=== PATIENT | male | born 1965 | race Caucasian/White ===

== ENCOUNTER 2021-06-25 11:49 | Emergency (ER) | payer MEDICAID, OTHER ==
[~2021-06-25] VITALS: Ht 170.2 cm; Wt 107.1 kg
--- NOTE | 2021-06-25 12:10 | PHYS DOC ---
Past History Additional Past Medical Histor: Hernia x 2 Additional Past Surgical Histo: Hernia repair Smoking: Chew Alcohol Use: None Drug Use: None General Adult EDM: Chief Complaint: ABDOMINAL PAIN HPI: HPI: Patient is a 56 year old male who presents with 2 hour history of sudden severe right sided abdominal pain which he believes is related to a ventral hernia that has been present for the past 8 months. Believes the hernia has been growing in size but denies any other symptoms related to it. He has also been nauseous with one episode of nonbloody emesis this morning. Denies any flank pain, diarrhea, or hematochezia. Denies use of blood thinners. Reports he last ate half a [employer] sandwich at approximately 10:30 AM. Denies known exposure to COVID-19. [employer] review from [facility] notes patient with primary closure of ventral hernia with Dr. Roberts in November 2019. Patient reports he previously had the same hernia repaired approximately 8 years ago at [facility] Review of Systems: Review of Systems: Constitutional: Denies fever or chills Eyes: Denies redness or eye pain HENT: Denies nasal congestion or sore throat Respiratory: Denies cough or shortness of breath Cardiovascular: Denies chest pain or palpitations GI: Reports abdominal pain, abdominal wall swelling, nausea, and vomiting. : Denies dysuria or hematuria Musculoskeletal: Denies back pain or joint pain Integument: Denies rash or skin lesions Neurologic: Denies headache, focal weakness or sensory changes Complete systems were reviewed and found to be within normal limits, except as documented in this note. Physical Exam: PE: Constitutional: Patient appears uncomfortable in bed secondary to pain. Well developed, well nourished, non-toxic appearing. HENT: Normocephalic, atraumatic Eyes: Conjunctiva normal, no discharge Neck: Normal range of motion, no tenderness, supple Lungs & Thorax: No respiratory distress, equal chest rise and fall Abdomen: There is a large right sided ventral hernia that is exquisitely tender to palpation. Voluntary guarding noted, remainder of abdomen is soft and nontender. Skin: Warm, dry, no erythema, no rash Back: No tenderness, no CVA tenderness Extremities: No tenderness, ROM intact, no edema Neurologic: Alert and oriented X 3, normal motor function, normal sensory function, no focal deficits noted Psychologic: Affect normal, judgment normal EKG: EKG: [] Radiology/Procedures: Radiology/Procedures: EXAM: CT ABDOMEN/PELVIS WITH CONTRAST. HISTORY: Abdominal pain, ventral hernia. TECHNIQUE: Computed tomography of the abdomen and pelvis was performed after the intravenous administration of iodinated contrast. One or more of the following individualized dose reduction techniques were utilized for this examination: 1. Automated exposure control. 2. Adjustment of the mA and/or kV according to patient size. 3. Use of iterative reconstruction technique. COMPARISON: None. FINDINGS: Lung windows through the visualized portions of the bases reveal mild atelectasis. Calcified mediastinal lymph nodes are likely secondary to old granulomatous disease. Bone windows reveal no suspicious lesions. There are calcified granulomas in the spleen. A tiny cyst in the left renal lowe r pole appears benign. The right kidney, adrenal glands, gallbladder, liver and pancreas are unremarkable. There are no pathologically enlarged lymph nodes. A supraumbilical hernia contains a distended loop of small bowel. There is surrounding stranding consistent with some vascular compression. More proximally, the small bowel is not distended. The appendix is not inflamed. Sigmoid diverticulosis is moderate. IMPRESSION: 1. A moderate supraumbilical hernia contains a distended loop of small bowel with evidence of surrounding edema. This does not clearly result in small bowel obstruction more proximally. Ongoing management is recommended. Electronically signed by: Sudeep Wallace MD (06/25/2021 1:00 PM) [id number] Heart Score: C/O Chest Pain: N/A Course & Med Decision Making: Course & Med Decision Making 56 year old male presents with severe right sided abdominal pain and ventral abdominal wall swelling. Administered fentanyl for adequate pain control. Labs obtained and posted to chart. CT abdomen/pelvis also obtained. Significantly elevated lactate, CT imaging imaging, and physical exam findings suggestive of incarcerated ventral hernia. Patient requiring transfer to facility with general surgery capability for further evaluation and treatment. Discussed with Dr. Barragan (hospitalist) at [facility] and Dr. Hernandez (general surgery) who are in agreement with admission and consultation respectively. Dr. Hernandez requesting empiric antibiotics with Zosyn. Discussed findings and plan with patient, who acknowledges understanding and agreement. Héctor Disclaimer: Héctor Disclaimer: This electronic medical record was generated, in whole or in part, using a voice recognition dictation system. Departure Departure: Impression: Primary Impression: Incarcerated ventral hernia Disposition: 02 SHORT TERM HOSPITAL ([facility]- Dr. Barragan (hospitalist) accepting. Dr. Hernandez (general surgery) in agreement with consultation.) Condition: GUARDED Referrals: JONAS BEE (PCP) SARAH IRIZARRY DO Jun 25, 2021 12:10
[2021-06-25] MEDS ORDERED: IV NORMAL SALINE 1,000ML 1,000 ML IV ONE (12:15)
[2021-06-25] MEDS ORDERED: ONDANSETRON PF 4 MG/2 ML VIAL. IVP ONE ×2 (12:15→14:45)
[2021-06-25] MEDS ORDERED: IOHEXOL 300 MG/ML 75 ML VIAL. IV ONE (12:15)
[2021-06-25 12:21] LABS: BASO # 0.1 x10^3/uL (0.0-0.2); BASO % 1 % (0-3); EOS # 0.3 x10^3/uL (0.0-0.7); EOS % 3 % (0-3); HEMATOCRIT 48.4 % (39.0-53.0); HEMOGLOBIN 16.2 g/dL (13.0-17.5); LYMPH # 3.7 x10^3/uL (1.0-4.8); LYMPH % 42 % (24-48); MEAN CORPUSCULAR HEMOGLOBIN 29 pg (25-35); MEAN CORPUSCULAR HGB CONC 34 g/dL (31-37); MEAN CORPUSCULAR VOLUME 86 fL (79-100); MONO # 1.2 x10^3/uL (0.0-1.1); MONO % 13 % (0-9); NEUT # 3.7 x10^3uL (1.8-7.7); NEUT % 41 % (31-73); PLATELET COUNT 318 x10^3/uL (140-400); RED BLOOD COUNT 5.65 x10^6/uL (4.30-5.70); RED CELL DISTRIBUTION WIDTH 14.5 % (11.5-14.5)
[2021-06-25 12:31] LABS: CALCIUM 9.1 mg/dL (8.5-10.1); POTASSIUM 3.3 mmol/L (3.5-5.1)
[2021-06-25 12:37] LABS: ALBUMIN 3.8 g/dL (3.4-5.0); ALBUMIN/GLOBULIN RATIO 1.1 (1.0-1.7); TOTAL BILIRUBIN 0.4 mg/dL (0.2-1.0); TOTAL PROTEIN 7.4 g/dL (6.4-8.2)
--- NOTE | 2021-06-25 13:02 | RAD ---
EXAM: CT ABDOMEN/PELVIS WITH CONTRAST. HISTORY: Abdominal pain, ventral hernia. TECHNIQUE: Computed tomography of the abdomen and pelvis was performed after the intravenous administ ration of iodinated contrast. One or more of the following individualized dose reduction techniques w ere utilized for this examination: 1. Automated exposure control. 2. Adjustment of the mA and/or kV according to patient size. 3. Use of iterative reconstruction technique. COMPARISON: None. FINDINGS: Lung windows through the visualized portions of the bases reveal mild atelectasis. Calcifie d mediastinal lymph nodes are likely secondary to old granulomatous disease. Bone windows reveal no s uspicious lesions. There are calcified granulomas in the spleen. A tiny cyst in the left renal lower pole appears benign . The right kidney, adrenal glands, gallbladder, liver and pancreas are unremarkable. There are no pa thologically enlarged lymph nodes. A supraumbilical hernia contains a distended loop of small bowel. There is surrounding stranding cons istent with some vascular compression. More proximally, the small bowel is not distended. The appendix is not inflamed. Sigmoid diverticulosis is moderate. IMPRESSION: 1. A moderate supraumbilical hernia contains a distended loop of small bowel with evidence of surroun ding edema. This does not clearly result in small bowel obstruction more proximally. Ongoing manageme nt is recommended. Electronically signed by: Sudeep Wallace MD (06/25/2021 1:00 PM) [id number]
[2021-06-25 13:27] LABS: BACTERIA,URINE 0 /HPF (0-FEW); BILIRUBIN,URINE NEG (NEG); CLARITY,URINE CLEAR; COLOR,URINE YELLOW; GLUCOSE,URINE NEG (NEG); NITRITE,URINE NEG (NEG); RBC,URINE 0 /HPF (0-2); SQUAMOUS EPITHELIAL CELL,UR OCC /LPF; UROBILINOGEN,URINE 0.2 mg/dL (0.2 mg/dL); WBC,URINE OCC /HPF (0-4)
[2021-06-25] MEDS ORDERED: IV NORMAL SALINE 50ML 50 ML ONE ×2 (14:41→14:44)
[2021-06-25] MEDS ORDERED: PIPERACILLIN/TAZOBACTAM 3.375 GM VIAL IV ONE (14:41)
[2021-06-25] MEDS ORDERED: PIPERACILLIN/TAZOBACTAM 3.375 GM in IV NORMAL SALINE 50ML 50 ML IV ONE (14:45)
[2021-06-25 14:54] VITALS: BP 138/69
== END 2021-06-25 14:56 | disposition short-term general hospital (02) ==
LOC: ER 11:49
DX: K43.6 Other and unspecified ventral hernia with obstruction, without gangrene (principal); F17.220 Nicotine dependence, chewing tobacco, uncomplicated; Z20.822 Contact with and (suspected) exposure to COVID-19
CPT/HCPCS: 36415; 74177; 80053; 81001; 83605; 83690; 85025; 87426; 96361; 96365; 96375; 96376; 99285; C9803; J2405; J2543; J3010; J7030; Q9967; U0003

== ENCOUNTER → 2021-08-02 | Outpatient (CLI) | payer MEDICAID ==
[~2021-08-02] MED LIST: IOHEXOL 300 MG/ML 75 ML VIAL. IV ONE
--- NOTE | 2021-08-02 14:26 | RAD ---
EXAM: Abdomen CT with intravenous contrast. HISTORY: Pain after hernia repair. TECHNIQUE: Computed tomographic images of the abdomen were obtained following the administration of i ntravenous contrast. Multiplanar reformatting was performed. *One or more of the following individualized dose reduction techniques were utilized for this examina tion: 1. Automated exposure control. 2. Adjustment of the mA and/or kV according to patient size. 3. Use of iterative reconstruction technique. COMPARISON: 06/25/2021. FINDINGS: Evaluation of the lower thorax demonstrates minimal left basilar atelectasis. There is no i nfiltrate or pleural effusion. There has been slight interval increase in distal paraesophageal lymph nodes, likely reactive given the short interval change. There is a tiny hiatal hernia. No hepatic le lev is seen. The gallbladder is contracted. The pancreas is unremarkable. There are splenic granulom as. The adrenal glands are unremarkable. There is a tiny left renal cortical cyst. Follow-up is not r outinely performed for simple cysts. There is no appendicitis. There is no bowel obstruction. There is colonic diverticulosis. There is no evidence of diverticulitis. The aorta is normal in caliber. There is ventral abdominal wall mesh due to recent ventral abdominal wall hernia repair. There is a loculated fluid collection within the saniya tral abdominal wall subcutaneous fat underlying the surgical incision measuring 7.2 cm craniocaudally by 5.7 cm transversely by 2.0 cm anteroposteriorly. There is stranding within the surrounding subcut aneous fat and a tiny focus of gas within the fluid collection. There are degenerative changes involv ing the spine, primarily at the lumbosacral junction. There is a prominent benign osseous hemangioma within L1. IMPRESSION: 1. 7.2 x 5.7 x 2.0 cm loculated fluid collection within the ventral abdominal wall subcutaneous fat u nderlying the incision related to recent ventral abdominal wall hernia repair. The differential inclu sarah a postoperative seroma/hematoma as well as abscess. There is surrounding edema. 2. Colonic diverticulosis. 3. Tiny suspected reactive distal paraesophageal lymph nodes and tiny hiatal hernia. Electronically signed by: Starr Chiu MD (08/02/2021 2:23 PM) [id number]
== END ==
LOC: CT 13:34
PROVIDERS: ATTEND Surgery
DX: K57.30 Diverticulosis of large intestine without perforation or abscess without bleeding (principal); N28.1 Cyst of kidney, acquired; K82.0 Obstruction of gallbladder; J98.11 Atelectasis; D18.09 Hemangioma of other sites
CPT/HCPCS: 74160; Q9967

== ENCOUNTER 2022-01-14 17:39 | Emergency (ER) | payer MEDICAID ==
[~2022-01-14] VITALS: Ht 170.2 cm; Wt 104.8 kg
[2022-01-14] MEDS ORDERED: ASPIRIN CHEWABLE 81 MG TABLET. PO ONE (17:45)
--- NOTE | 2022-01-14 18:12 | RAD ---
Exam: Chest one view INDICATION: Chest pain TECHNIQUE: Frontal view of the chest Comparisons: None FINDINGS: The cardiomediastinal silhouette and pulmonary vessels are within normal limits. The lung and pleural spaces are clear. IMPRESSION: No acute cardiopulmonary process. Electronically signed by: Hellen Lucas MD (01/14/2022 6:10 PM) KAVYA
[2022-01-14 18:23] LABS: BASO # 0.1 x10^3/uL (0.0-0.2); BASO % 1 % (0-3); EOS # 0.2 x10^3/uL (0.0-0.7); EOS % 2 % (0-3); HEMATOCRIT 48.4 % (39.0-53.0); HEMOGLOBIN 16.1 g/dL (13.0-17.5); LYMPH # 1.5 x10^3/uL (1.0-4.8); LYMPH % 17 % (24-48); MEAN CORPUSCULAR HEMOGLOBIN 29 pg (25-35); MEAN CORPUSCULAR HGB CONC 33 g/dL (31-37); MEAN CORPUSCULAR VOLUME 86 fL (79-100); MONO # 0.9 x10^3/uL (0.0-1.1); MONO % 10 % (0-9); NEUT # 6.2 x10^3uL (1.8-7.7); NEUT % 70 % (31-73); PLATELET COUNT 290 x10^3/uL (140-400); RED BLOOD COUNT 5.63 x10^6/uL (4.30-5.70); RED CELL DISTRIBUTION WIDTH 14.9 % (11.5-14.5); WHITE BLOOD COUNT 8.8 x10^3/uL (4.0-11.0)
--- NOTE | 2022-01-14 18:30 | PHYS DOC ---
Past History Past Medical History: Hypertension Additional Past Medical Histor: Hernia x 2 (KELLI CLEMENS) Past Surgical History: No Surgical History Additional Past Surgical Histo: Hernia repair (KELLI CLEMENS) Smoking: Chew Alcohol Use: None Drug Use: None (KELLI CLEMENS) General Adult EDM: Chief Complaint: CHEST PAIN HPI: HPI: Patient is a 56 year old male with history of hypertension with medication noncompliance who presents from his primary care provider's office with central chest pressure. Patient states he was visiting his primary care provider for evaluation of 1 week history of nasal congestion and 5-day history of throat and dental/jaw pain. At that time, he did complain of central chest pressure that was 10/10 nonradiating that began around 1300. His blood pressure in the office was 138/90. Primary care provider called the emergency department directly to give report on patient. Patient states that at the time his pressure began, he did take his antihypertensive medication as well as Tums without symptom relief. Patient currently rates his pain as 6/10. He reports that when he gets up and moves around, his pain is relieved. When he sits at rest and is not moving much, the pain gets worse. Patient denies diaphoresis, weakness, nausea/vomiting, palpitations, cough, shortness of breath. Patient is not vaccinated against COVID-19 nor is he received a flu shot this season. (KELLI CLEMENS) Review of Systems: Review of Systems: Constitutional: Denies fever, chills or generalized weakness Eyes: Denies change in visual acuity, visual field deficits or discharge HENT: See HPI Respiratory: See HPI Cardiovascular: See HPI GI: Denies abdominal pain, nausea, vomiting, bloody stools or diarrhea : Denies dysuria or hematuria Musculoskeletal: Denies back pain or joint pain Integument: Denies rash or other skin lesion Neurologic: Denies headache, focal weakness or sensory changes (KELLI CLEMENS) Current Medications: Current Meds: Current Medications Medications (Trade) Dose Ordered Sig/Maxine Start Time Stop Time Status Last Admin Dose Admin Aspirin (Aspirin Chewable) 324 mg 1X ONCE 01/14/22 17:45 01/14/22 17:58 DC 01/14/22 18:10 324 MG (KELLI CLEMENS) Allergies: Allergies: Allergies Coded Allergies Type Severity Reaction Last Updated Verified No Known Drug Allergies 06/25/21 No (KELLI CLEMENS) Physical Exam: PE: Constitutional: Obese, well-groomed, no acute distress, non-toxic appearance. HENT: Normocephalic, atraumatic, bilateral external ears without deformity or discharge, oropharynx moist, no oral exudates, nose without deformity or discharge. Eyes: EOMI, conjunctiva normal, no discharge. Neck: Normal range of motion, no stridor, no JVD. Cardiovascular: Heart regular rate and rhythm. No obvious murmurs, rubs or gallops. Lungs & Thorax: Equal thoracic expansion, no increased work of breathing, bilateral breath sounds clear to auscultation. Skin: Warm, dry, no erythema, no rash. Back: No step-off, no midline tenderness, no CVA tenderness. Extremities: No tenderness, no cyanosis, no clubbing, ROM intact, no edema. Neurologic: Alert and oriented x4, steady and symmetrical upright gait, no focal deficits noted. (KELLI CLEMENS) Current Patient Data: Labs: Laboratory Tests Test 01/14/22 18:00 White Blood Count 8.8 x10^3/uL (4.0-11.0) Red Blood Count 5.63 x10^6/uL (4.30-5.70) Hemoglobin 16.1 g/dL (13.0-17.5) Hematocrit 48.4 % (39.0-53.0) Mean Corpuscular Volume 86 fL (79-100) Mean Corpuscular Hemoglobin 29 pg (25-35) Mean Corpuscular Hemoglobin Concent 33 g/dL (31-37) Red Cell Distribution Width 14.9 % (11.5-14.5) Platelet Count 290 x10^3/uL (140-400) Neutrophils (%) (Auto) 70 % (31-73) Lymphocytes (%) (Auto) 17 % (24-48) Monocytes (%) (Auto) 10 % (0-9) Eosinophils (%) (Auto) 2 % (0-3) Basophils (%) (Auto) 1 % (0-3) Neutrophils # (Auto) 6.2 x10^3uL (1.8-7.7) Lymphocytes # (Auto) 1.5 x10^3/uL (1.0-4.8) Monocytes # (Auto) 0.9 x10^3/uL (0.0-1.1) Eosinophils # (Auto) 0.2 x10^3/uL (0.0-0.7) Basophils # (Auto) 0.1 x10^3/uL (0.0-0.2) Sodium Level 138 mmol/L (136-145) Potassium Level 3.9 mmol/L (3.5-5.1) Chloride Level 101 mmol/L (98-107) Carbon Dioxide Level 26 mmol/L (21-32) Anion Gap 11 (6-14) Blood Urea Nitrogen 14 mg/dL (8-26) Creatinine 0.9 mg/dL (0.7-1.3) Estimated GFR (Cockcroft-Gault) 87.0 BUN/Creatinine Ratio 16 (6-20) Glucose Level 102 mg/dL (70-99) Calcium Level 9.5 mg/dL (8.5-10.1) Magnesium Level 2.2 mg/dL (1.8-2.4) Total Bilirubin 0.5 mg/dL (0.2-1.0) Aspartate Amino Transf (AST/SGOT) 23 U/L (15-37) Alanine Aminotransferase (ALT/SGPT) 17 U/L (16-63) Alkaline Phosphatase 66 U/L (46-116) Troponin I High Sensitivity 347 ng/L (4-75) Total Protein 7.3 g/dL (6.4-8.2) Albumin 4.1 g/dL (3.4-5.0) Albumin/Globulin Ratio 1.3 (1.0-1.7) Vital Signs: VS - Last 72 Hours, by Label Date Time Temp Pulse Resp B/P (MAP) Pulse Ox O2 Delivery O2 Flow Rate FiO2 01/14/22 17:45 98.1 72 20 135/85 (102) 96 Room Air ([facility]) EKG: EKG: EKG Interpreted by Dr. Ernandez at 1755: Regular rate and rhythm 72 bpm with no ectopic beats. QT 372 ms/QTc 409 ms. No STEMI. EKG Interpreted by Dr. Quan at 1855: Regular rate and rhythm 61 bpm with no ectopic beats. T-wave inversion in lead III. QT 400 ms/QTc 408 ms. No STEMI. (KELLI CLEMENS) Radiology/Procedures: Radiology/Procedures: PROCEDURE: CHEST AP ONLY Exam: Chest one view INDICATION: Chest pain TECHNIQUE: Frontal view of the chest Comparisons: None FINDINGS: The cardiomediastinal silhouette and pulmonary vessels are within normal limits. The lung and pleural spaces are clear. IMPRESSION: No acute cardiopulmonary process. Electronically signed by: Hellen Hui MD (01/14/2022 6:10 PM) [facility] (KELLI CLEMENS) Radiology/Procedures: IMAGING REPORT Signed PATIENT: ROBERT SHANNON ACCOUNT: [id number] : 1965 LOCATION: ER AGE: 56 SEX: M EXAM STATUS: REG ER ORD. PHYSICIAN: ERICA QUAN DO REASON: cp, r/o pe Omni 350 100cc PROCEDURE: CT ANGIOGRAPHY CHEST Exam: CT of chest with contrast INDICATION: Chest pain TECHNIQUE: Sequential axial images through the chest obtained following the administration of 99 mL of Isovue-370 IV contrast. Sagittal and coronal reformatted images were reconstructed from the axial data and reviewed. 3-D reformatted images were reconstructed from the axial data and reviewed. Exposure: One or more of the following in the visualized dose reduction techniques were utilized for this examination: 1. Automated exposure control 2. Adjustment of the MA and/or KV according to patient size 3. Use of iterative of reconstructive technique Comparisons: Chest x-ray same day FINDINGS: Visualized portions of the thyroid are unremarkable. No enlarged mediastinal ly mph nodes are identified. Heart size is normal. No pericardial effusion. Thoracic aorta has a normal course and caliber. Ulnar artery is not enlarged. No pulmonary embolus identified within the main, lobar or segmental pulmonary arteries. Airways are patent. No consolidation or pneumothorax. No suspicious lung nodules. No pleural effusion or thickening. Visualized upper abdomen is unremarkable. No suspicious osseous lesions or acute fractures. IMPRESSION: No pulmonary embolus identified within the main, lobar or segmental pulmonary arteries. Electronically signed by: Hellen Hui MD (01/14/2022 7:49 PM) [facility] DICTATED AND SIGNED BY: HELLEN HUI MD DATE: 01/14/221946 CC: SEYMOUR EMERY; ERICA QUAN DO ~MTH0 0 IMAGING REPORT Signed PATIENT: ROBERT SHANNON ACCOUNT: [id number] : 1965 LOCATION: ER AGE: 56 SEX: M EXAM STATUS: REG ER ORD. PHYSICIAN: KELLI CLEMENS REASON: CHEST PAIN PROCEDURE: CHEST AP ONLY Exam: Chest one view INDICATION: Chest pain TECHNIQUE: Frontal view of the chest Comparisons: None FINDINGS: The cardiomediastinal silhouette and pulmonary vessels are within normal limits. The lung and pleural spaces are clear. IMPRESSION: No acute cardiopulmonary process. Electronically signed by: Hellen Hui MD (01/14/2022 6:10 PM) [facility] DICTATED AND SIGNED BY: HELLEN HUI MD DATE: 01/14/221808 CC: SEYMOUR EMERY; EMERGENCY,DEPARTMENT; KELLI CLEMENS ~MTH0 0 (ERICA QUAN DO) Heart Score: C/O Chest Pain: Yes HEART Score for Chest Pain: HEART Score for Chest Pain Response (Comments) Value History Slighlty/Non-Suspicious 0 ECG Normal 0 Age >45 - < 65 1 Risk Factors >3 Risk Factors or Hx CAD 2 Troponin >3 x Normal Limit 2 Total 5 Risk Factors: Risk Factors: Current tobacco use, HTN, obesity Risk Scores: Score 0 - 3: 2.5% MACE over next 6 weeks - Discharge Home Score 4 - 6: 20.3% MACE over next 6 weeks - Admit for Clinical Observation Score 7 - 10: 72.7% MACE over next 6 weeks - Early Invasive Strategies (KELLI CLEMENS) Course & Med Decision Making: Course & Med Decision Making Pertinent Labs and Imaging studies reviewed. (See chart for details) Patient's troponin is elevated to [address] elevation seen on EKG. Heart score 5. Cardiology and hospitalist at [facility] paged for urgent transfer. Patient care was transferred to Dr. Quan at 1900 upon my leaving the department. Patient stable at this time. Comprehensive sign out provided verbally in department. Pages to cardiology and HIMS still outgoing, not yet returned. (KELLI CLEMENS) Course & Med Decision Making Concern for nstemi, ekg with TWI III, no ST elevations present. Chest x-ray unremarkable. CT angio of the chest shows no pulmonary embolus. Repeat EKG with no new changes. Discussed with Dr. Vera, cardiology aware. Will transfer and admit to [facility]-accepted by Dr. Horne. I have spoken with the patient and/or caregivers. I have explained the patient's condition, diagnosis and treatment plan based on the information available to me at this time. I have answered the patient's and/or caregivers questions and answered any concerns. The patient and/or caregivers have as good an understanding of the patient's diagnosis, condition and treatment plan as can be expected at this point. The patient has been stabilized within the capability of the emergency department. The patient will be transported for further care and management or will be moved to an observation or inpatient service. I have communicated with the staff or medical practitioner taking over this patient's care. (ERICA QUAN DO) Dragon Disclaimer: Héctor Disclaimer: This electronic medical record was generated, in whole or in part, using a voice recognition dictation system. (KELLI CLEMENS) Departure Departure: Impression: Primary Impression: NSTEMI (non-ST elevated myocardial infarction) Additional Impression: Chest pain at rest Disposition: 02 [facility]ORT TERM [facility]PITAL (accepted by Dr. Horne) Condition: GUARDED Referrals: SEYMOUR EMERY (PCP) KELLI CLEMENS Jan 14, 2022 18:30 ERICA QUAN DO Jan 14, 2022 20:25
[2022-01-14 18:40] LABS: CALCIUM 9.5 mg/dL (8.5-10.1); CREATININE 0.9 mg/dL (0.7-1.3); POTASSIUM 3.9 mmol/L (3.5-5.1)
[2022-01-14 18:44] LABS: ALBUMIN 4.1 g/dL (3.4-5.0); ALBUMIN/GLOBULIN RATIO 1.3 (1.0-1.7); MAGNESIUM 2.2 mg/dL (1.8-2.4); TOTAL BILIRUBIN 0.5 mg/dL (0.2-1.0); TOTAL PROTEIN 7.3 g/dL (6.4-8.2)
--- NOTE | 2022-01-14 19:04 | EKG ---
[address] [address] Test Date: 2022-01-14 Test Time: 18:55:00 Pat Name: ROBERT SHANNON Department: Room: Gender: M Watch Adjuster: NATALIE : 1965 Requested By: KELLI CLEMENS Order Number: [id number] Reading MD: Allan Vera MD Measurements Intervals [place] Rate: 61 P: 24 PA: 154 QRS: -21 QRSD: 96 T: 21 QT: 400 QTc: 408 Interpretive Statements SINUS RHYTHM CONSIDER INFERIOR ISCHEMIA Electronically Signed On 01-15-2022 10:25:35 SOURCER by Allan Vera MD
[2022-01-14 19:19] LABS: BARBITURATES NEG (NEG); BENZODIAZEPINES NEG (NEG); CANNABINOIDS NEG (NEG); COCAINE NEG (NEG); METHADONE NEG (NEG); OPIATES NEG (NEG); PHENCYCLIDINE NEG (NEG)
[2022-01-14 19:26] LABS: CLARITY,URINE CLEAR; COLOR,URINE YELLOW; GLUCOSE,URINE NEG (NEG); NITRITE,URINE NEG (NEG); UROBILINOGEN,URINE 0.2 mg/dL (0.2 mg/dL)
[2022-01-14 19:27] LABS: BACTERIA,URINE 0 /HPF (0-FEW); RBC,URINE 0 /HPF (0-2); WBC,URINE 0 /HPF (0-4)
[2022-01-14] MEDS ORDERED: IOHEXOL 350 MG/ML 100 ML VIAL. IV ONE (19:30)
[2022-01-14 19:39] LABS: AMPHETAMINE/METHAMPHETAMINE NEG (NEG)
--- NOTE | 2022-01-14 19:52 | RAD ---
Exam: CT of chest with contrast INDICATION: Chest pain TECHNIQUE: Sequential axial images through the chest obtained following the administration of 99 mL o f Isovue-370 IV contrast. Sagittal and coronal reformatted images were reconstructed from the axial d gissel and reviewed. 3-D reformatted images were reconstructed from the axial data and reviewed. Exposure: One or more of the following in the visualized dose reduction techniques were utilized for this examination: 1. Automated exposure control 2. Adjustment of the MA and/or KV according to patient size 3. Use of iterative of reconstructive technique Comparisons: Chest x-ray same day FINDINGS: Visualized portions of the thyroid are unremarkable. No enlarged mediastinal lymph nodes are identifi ed. Heart size is normal. No pericardial effusion. Thoracic aorta has a normal course and caliber. Ulnar artery is not enlarged. No pulmonary embolus identified within the main, lobar or segmental pulmonary arteries. Airways are patent. No consolidation or pneumothorax. No suspicious lung nodules. No pleural effusion or thickening. Visualized upper abdomen is unremarkable. No suspicious osseous lesions or acute fractures. IMPRESSION: No pulmonary embolus identified within the main, lobar or segmental pulmonary arteries. Electronically signed by: Hellen Lucas MD (01/14/2022 7:49 PM) [facility]
[2022-01-14] MEDS ORDERED: MORPHINE SULFATE 4 MG/ML DISP.SYRIN. IV ONE (20:30)
[2022-01-14 20:53] VITALS: BP 110/79
== END 2022-01-14 21:15 | disposition short-term general hospital (02) ==
LOC: ER 17:39
DX: I21.4 Non-ST elevation (NSTEMI) myocardial infarction (principal); I10 Essential (primary) hypertension; F17.220 Nicotine dependence, chewing tobacco, uncomplicated; Z20.822 Contact with and (suspected) exposure to COVID-19
CPT/HCPCS: 36415; 71045; 71275; 80053; 80307; 81001; 83735; 84484; 85025; 85610; 85730; 87426; 93005; 96374; 99285; C9803; G0480; J2270; Q9967; U0003